=== PATIENT | female | born 1975 | race Asian ===

== ENCOUNTER 2023-06-18 14:01 | Outpatient (CLI) | payer OTHER, MEDICAID, SELFPAY | END 2023-06-18 14:02 | disposition home or self-care (01) | PROVIDERS: PCP Family Medicine; Visit Provider Family Medicine | DX: F31.9 Bipolar disorder, unspecified (principal); E03.9 Hypothyroidism, unspecified; G40.909 Epilepsy, unspecified, not intractable, without status epilepticus; J45.909 Unspecified asthma, uncomplicated; Z13.0 Encounter for screening for diseases of the blood and blood-forming organs and certain disorders involving the immune mechanism | CPT/HCPCS: 80053; 84439; 84443 ==

== ENCOUNTER 2024-02-26 08:20 | Outpatient (CLI) | payer OTHER, MEDICAID, SELFPAY ==
--- NOTE | 2024-02-26 08:45 | CRLHL7_ITS ---
For Patients: As a result of the Century Cures Act, medical imaging exams and procedure reports are released immediately into your electronic medical record. You may view this report before your referring provider. If you have questions, please contact your health care provider. BILATERAL SCREENING MAMMOGRAM WITH COMPUTER-AIDED DETECTION AND TOMOSYNTHESIS TECHNIQUE: CC and MLO views were obtained. These mammographic images have been obtained using full-field digital technique. These mammographic images were interpreted with the benefit of computer-aided detection. Breast Tomosynthesis was used in this interpretation. COMPARISON FILM: Baseline. FINDINGS: There are scattered areas of fibroglandular density. IMPRESSION: There is no radiographic evidence for malignancy. ASSESSMENT: BI-RADS Category 1: Negative RECOMMENDATION: Routine screening mammogram in 1 year. A lay language report of this examination will be provided to the patient. Karson Rivas M.D. Diagnostic/Nuclear Medicine Radiologist [email or web address] LEO/tushar SP/Dictated by: Karson Rivas MD @ 02/28/2024 10:09:00 AM (Electronically Signed)
== END 2024-02-26 08:21 | disposition home or self-care (01) ==
LOC: MAMMO 08:20
PROVIDERS: PCP Family Medicine; Visit Provider Family Medicine
DX: Z12.31 Encounter for screening mammogram for malignant neoplasm of breast (principal)
CPT/HCPCS: 77063; 77067

== ENCOUNTER 2024-05-27 09:38 | Outpatient (CLI) | payer OTHER, MEDICAID, SELFPAY | END 2024-05-27 09:39 | disposition home or self-care (01) | PROVIDERS: PCP Family Medicine; Visit Provider Family Medicine | DX: E03.9 Hypothyroidism, unspecified (principal); G40.909 Epilepsy, unspecified, not intractable, without status epilepticus | CPT/HCPCS: 80053; 84443 ==

== ENCOUNTER 2024-07-15 07:38 | Outpatient (CLI) | payer OTHER, MEDICAID, SELFPAY ==
--- NOTE | 2024-07-15 09:34 | P.ANES_ITS ---
Anesthesia Charges Start Date/Time Anesthesia Start Date: 07/15/24 Anesthesia Start Time: 09:02 Stop Date/Time Anesthesia Stop Date: 07/15/24 Anesthesia Stop Time: 09:32 Coding CPT Codes CPT Codes: ANES LWR INTST SCR COLSC - 91489 ([id number]) P3 - PATIENT W/SEVERE SYS DISEASE, QK - ADVERTISING ASSOCIATE 2-4 CNCRNT ANES PROC, QX - VP RESEARCH SVC W/ MD MED DIRECTION
--- NOTE | 2024-07-15 09:34 | W.ANESCHARGE ---
Anesthesia Charges Start Date/Time Anesthesia Start Date: 07/15/24 Anesthesia Start Time: 09:02 Stop Date/Time Anesthesia Stop Date: 07/15/24 Anesthesia Stop Time: 09:32 Coding CPT Codes CPT Codes: ANES LWR INTST SCR COLSC - 91169 ([id number]) P3 - PATIENT W/SEVERE SYS DISEASE, QK - CREDIT RISK ANALYST 2-4 CNCRNT ANES PROC, QX - SET UP MECHANIC COATING MACHINES SVC W/ MD MED DIRECTION
--- NOTE | 2024-07-15 09:52 | P.ANES_ITS ---
Anesthesia Charges Start Date/Time Anesthesia Start Date: 07/15/24 Anesthesia Start Time: 09:02 Stop Date/Time Anesthesia Stop Date: 07/15/24 Anesthesia Stop Time: 09:32 Coding CPT Codes CPT Codes: ANES LWR INTST SCR COLSC - 82059 ([id number]) QK - CASH ACCOUNTING CLERK 2-4 CNCRNT ANES PROC, QX - DIRECTOR OF WORKFORCE DEVELOPMENT SVC W/ MED DIRECTION, P3 - PATIENT W/SEVERE SYS DISEASE
--- NOTE | 2024-07-15 09:52 | W.ANESCHARGE ---
Anesthesia Charges Start Date/Time Anesthesia Start Date: 07/15/24 Anesthesia Start Time: 09:02 Stop Date/Time Anesthesia Stop Date: 07/15/24 Anesthesia Stop Time: 09:32 Coding CPT Codes CPT Codes: ANES LWR INTST SCR COLSC - 87730 ([id number]) QK - CYCLE LIAISON 2-4 CNCRNT ANES PROC, QX - ACCOUNTS PAYABLE OR RECEIVABLE CLERK SVC W/ MED DIRECTION, P3 - PATIENT W/SEVERE SYS DISEASE
== END 2024-07-15 07:39 | disposition home or self-care (01) ==
LOC: OP CLINIC 07:39
PROVIDERS: PCP Family Medicine; Visit Provider Surgery
DX: Z12.11 Encounter for screening for malignant neoplasm of colon (principal); R19.5 Other fecal abnormalities
CPT/HCPCS: 00812; 45378; J2405; J2704